=== PATIENT | female | born 1985 | race Caucasian/White ===

== ENCOUNTER 2016-11-29 05:40 | Inpatient (IN) | payer OTHER ==
--- NOTE | 2016-11-28 08:12 | P.HPOB ---
History of Present Illness H&P Date: 11/28/16 Chief Complaint: Repeat C/S and tubal ligation. This patient is a pleasant 31 yr female EDC 12/04/2016 EGA 39 weeks and 2 days who presents for repeat section and also requesting tubal ligation. has been uncomplicated. Review of Systems Constitutional: Denies chills, Denies fever Ears, nose, mouth and throat: Denies headache, Denies sore throat Cardiovascular: Denies chest pain, Denies shortness of breath Respiratory: Denies cough Gastrointestinal: Reports heartburn Genitourinary: Reports Menstruation: Reports amenorrhea Musculoskeletal: Denies myalgias Integumentary: Denies pruritus, Denies rash Neurological: Denies numbness, Denies weakness Psychiatric: Denies anxiety, Denies depression Past Medical History Past Medical History: No Reported History History of Any Multi-Drug Resistant Organisms: None Reported Past Surgical History: Section Past Anesthesia/Blood Transfusion Reactions: Postoperative Nausea & Vomiting ( PONV) Past Psychological History: No Psychological Hx Reported Smoking Status: Current every day smoker Past Alcohol Use History: None Reported Additional Past Alcohol Use History / Comment(s): has smoked 12 years currently 5 cig/day Past Drug Use History: None Reported - Past Family History Mother Family Medical History: No Reported History Medications and Allergies Home Medications Medication Instructions Recorded Confirmed Type #79/Iron Asp Gly/FA#1 1 each PO DAILY 11/22/16 11/26/16 History [Prenate Elite Tablet] Allergies Allergy/AdvReac Type Severity Reaction Status Date / Time No Known Allergies Allergy Verified 11/26/16 14:58 Exam - OBG Physical Exam Abdomen: bowel sounds normal, no diffuse tenderness, no bruit present, no guarding noted, no hepatomegaly, no splenomegaly, no mass Vulva: both: normal Vagina: normal moisture, no discharge Cervix: no lesion (Cervix in the office was closed.), no discharge Uterus: enlarged (Fundal height is 40cm) Results labs: A positive, Rubella Immune, CEA-JZT-IjuW negative, Glucola was normal. GBS negative. Ultrasounds have been normal. Assessment and Plan (1) Third trimester Narrative/Plan: This is a pleasant 31 yr female 39 and 2/7 wks gestation with previous C/S who requests repeat C/S and also desires a tubal ligation. Patient does understand that a tubal ligation is considered permanent, however there is a failure rate of ~20-. She also understands the risks of surgery: infection, bleeding, possible injury to bowel/bladder/vessels or other organs. All of the patients questions were answered and a written consent obtained. Plan is to proceed with a repeat section and bilateral partial salpingectomy. Status: Acute (2) Previous delivery affecting Status: Acute (3) Family planning Status: Acute
[2016-11-29] MEDS ORDERED: LACTATED RINGERS 1,000 ML IV SCH (05:59)
[2016-11-29] MEDS ORDERED: CITRIC ACID-SODIUM CITRATE 15 ML CUP PO ONE (05:59)
[2016-11-29] MEDS ORDERED: LACTATED RINGERS 1,000 ML IV ONE (05:59)
[2016-11-29 06:07] VITALS: BMI 31.9
[2016-11-29 07:05] LABS: Basophils % (A) 0 %; CH 30.5; CHCM 33.3; Eosinophils # (A) 0.1 k/uL (0-0.7); Eosinophils % (A) 1 %; HCT 36.1 % (34.0-46.0); HDW 2.27; Luc # (Auto) 0.46; Luc % (Auto) 3; Lymphocytes % (A) 22 %; MCH 30.7 pg (25.0-35.0); MCHC 33.3 g/dL (31.0-37.0); MCV 92.2 fL (80.0-100.0); Mean Platelet Volume 7.7; Monocytes # (A) 1.1 k/uL (0-1.0); Monocytes % (A) 8 %; Neutrophils # (A) 9.3 k/uL (1.3-7.7); Neutrophils % (A) 67 %; RBC 3.91 m/uL (3.80-5.40); RDW 13.6 % (11.5-15.5)
[2016-11-29] MEDS ORDERED: ceFAZolin 2 GM in SODIUM CHLORIDE 0.9% 100 ML IVPB ONE (07:15)
[2016-11-29] MEDS ORDERED: NALBUPHINE 10 MG/ML AMPUL ONE (07:43)
[2016-11-29] MEDS ORDERED: PHENYLEPHRINE-0.9% NACL SYG 1 MG/10 ML SYRINGE ONE (07:43)
[2016-11-29] MEDS ORDERED: KETOROLAC 30 MG/ML 1 ML VIAL ONE (07:43)
[2016-11-29] MEDS ORDERED: MORPHINE SULFATE (PF) 0.3 MG/0.3 ML SYR ONE (07:43)
[2016-11-29] MEDS ORDERED: ONDANSETRON 4 MG/2 ML VIAL ONE (07:43)
[2016-11-29] MEDS ORDERED: LACTATED RINGERS 1,000 ML BAG IV ONE (07:43)
[2016-11-29] MEDS ORDERED: OXYTOCIN 10 UNIT/ML 1 ML VIAL IM ONE (07:43)
--- NOTE | 2016-11-29 08:41 | P.OP ---
Date of Procedure: 11/29/16 Preoperative Diagnosis: #1: 39-2/7 weeks . #2: Previous section desires repeat. #3: Multi parity desires permanent sterilization. Postoperative Diagnosis: Same Procedure(s) Performed: #1: Repeat low transverse section. #2: Bilateral partial salpingectomy. Anesthesia: spinal Surgeon: Oscar Ortega Organic Lab Worker #1: Paola Clinton Estimated Blood Loss (ml): 500 Pathology: other (Placenta and bilateral fallopian tube segments.) Condition: stable Disposition: floor Indications for Procedure: Please see dictated H&P for intimate details of this patient's admission. In brief summary this is a pleasant 31-year-old 2 para 1 female 39-2/7 weeks gestation who is admitted to labor and delivery for elective repeat section and also requesting permanent sterilization. Patient does understand that a tubal ligation is considered permanent however there is a failure rate of approximately 20-25 per thousand procedures done. She also understands surgery itself has risks including risk of infection, bleeding, possible injury to bowel, bladder, vessels, and/or other organs. All the patient's questions are answered and a written consent is obtained. Operative Findings: This was a vigorous viable male Apgars were 9 and 10 delivery time was 0804 hrs. Description of Procedure: This patient has a Hall catheter placed to straight drain. She is sexually taken to the operating room where she is sat up and spinal anesthetic is administered without incident. With an adequate level of anesthesia, she has abdominal prep and drape. Scalpels and taken in the previous Pfannenstiel incision is excised. A second scalpel is taken down to the fascia. The fascial incision extended bilaterally using the Florence scissors. Fascia is then dissected sharply off the rectus muscles. Rectus muscles are and the peritoneum is identified and entered sharply. The peritoneal incision extended superiorly and inferiorly without difficulty. The bladder blade is placed. Bladder peritoneum was taken sharply off the lower uterine segment. Scalpels then taken a low transverse uterine incision is then made. Using a hemostat I into the uterine cavity bluntly, there is loss of a large amount of clear fluid. This incision is extended bluntly. 's head is then guided through the incision with fundal pressure we have delivery of the infant's head. Mouth and nares are bulb suctioned and there is no evidence of a nuchal cord. We then have delivery the rest this infant's body. This is a vigorous viable male infant Apgars are 9 and 10 delivery time was 0804 hrs. After delivery of the the umbilical cord is doubly clamped and cut and appears to be trivascular. The placenta is then manually extracted intact. The uterus is externalized. The uterine incisions demarcated with Du clamps. All debris is cleared the uterine cavity. Uterine incision is then closed using 0 Vicryl in 2 layers locking fashion. Excellent hemostasis is noted. Bladder peritoneum was then reapproximated using a 3-0 Vicryl. Again good hemostasis is noted I then turned my attention to the left fallopian tube. Approximately 4 cm from the cornual insertion a small window is made to the mesial salpinx with Bovie cautery. Using a 2-0 silk I doubly ligate a 2 cm segment of fallopian tube. This is then excised and handed off to pathology. Cauterization is done of the tubal ends. Then turned my attention of the right fallopian tube and using a similar technique a segment of the right fallopian tube is removed. Cauterization of the tubal ends is done as well. Both tubes were inspected and found to be hemostatic. Excess fluid is removed from the abdomen and pelvis. The uterus is placed back into the abdomen. Again the tubes inspected and found to be hemostatic. The parietal peritoneum was then identified and closed using 0 Vicryl running fashion. The rectus muscles reapproximated in 0 Vicryl interrupted fashion. Fascia is then closed using 0 PDS. Fascial incision is intact and hemostatic. Subcutaneous tissues and closed using a 3-0 Vicryl. Skin is and closed using timothy. All counts are correct 3. No complications. and mother are stable in their birthing suite.
[2016-11-29] MEDS ORDERED: ACETAMINOPHEN TAB 325 MG TAB PO PRN (08:53)
[2016-11-29] MEDS ORDERED: ONDANSETRON 4 MG/2 ML VIAL IVP PRN (08:53)
[2016-11-29] MEDS ORDERED: DIPH,PERTUS(ACELL)TETVAC-LF 0.5 ML VIAL IM ONE (08:53)
[2016-11-29] MEDS ORDERED: diphenhydrAMINE 50 MG/ML 1 ML VIAL IVP PRN (08:53)
[2016-11-29] MEDS ORDERED: SIMETHICONE 80 MG CHEWABLE PO PRN (08:53)
[2016-11-29] MEDS ORDERED: NALOXONE 0.4 MG/ML 1 ML VIAL IV PRN (08:53)
[2016-11-29] MEDS ORDERED: Acetaminophen-Codeine 300-30mg TAB PO PRN (08:53)
[2016-11-29] MEDS ORDERED: diphenhydrAMINE 25 MG CAP PO PRN (08:53)
[2016-11-29] MEDS ORDERED: ZOLPIDEM 5 MG TAB PO PRN (08:53)
[2016-11-29] MEDS ORDERED: LANOLIN CREAM 5 GM TUBE TOPICAL PRN (08:53)
[2016-11-29] MEDS ORDERED: OXYTOCIN 30 UNITS/500 ML NS 30 UNIT in SALINE 1 500ML.BAG IV SCH (08:53)
[2016-11-29] MEDS ORDERED: METOCLOPRAMIDE 5 MG/ML 2 ML VIAL IVP PRN (08:53)
[2016-11-29] MEDS: SENNOSIDES-DOCUSATE SODIUM 1 EACH TAB PO SCH ×2 (09:56→19:49)
[2016-11-29] MEDS: LACTATED RINGERS 1,000 ML IV SCH ×3 (12:57→21:28)
[2016-11-29] MEDS: KETOROLAC 30 MG/ML 1 ML VIAL IVP PRN ×2 (14:06→19:48)
[2016-11-30] MEDS: KETOROLAC 30 MG/ML 1 ML VIAL IVP PRN ×2 (01:41→08:54)
[2016-11-30] MEDS: LACTATED RINGERS 1,000 ML IV SCH (01:42)
--- NOTE | 2016-11-30 07:48 | P.PNOBGPC ---
Subjective - Subjective Patient reports: Reports appetite normal, Reports voiding normally, Reports pain well controlled, Reports ambulating normally : doing well Objective - Vital Signs Latest vital signs: Vital Signs Temp Pulse Pulse Resp BP Pulse Ox 11/30/16 05:00 98.2 F 68 16 100/54 11/29/16 23:48 98.3 F 73 16 93/54 11/29/16 20:00 98.1 F 69 16 116/69 11/29/16 16:30 98.3 F 56 L 16 100/59 99 11/29/16 12:00 98.3 F 60 18 126/60 98 11/29/16 10:30 96.9 F L 60 15 102/59 100 11/29/16 10:00 61 18 110/66 100 11/29/16 09:30 96.8 F L 56 L 17 104/62 99 11/29/16 09:15 53 L 18 105/60 99 11/29/16 09:00 55 L 16 104/57 99 11/29/16 08:45 76 15 92/51 98 11/29/16 08:30 96.5 F L 76 17 94/46 99 Intake and Output 11/29/16 11/30/16 11/30/16 22:59 06:59 14:59 Intake Total 240 Output Total 500 200 Balance -260 -200 Intake: IV 240 Invasive Line 1 240 Output: Urine 500 200 Uretheral (Hall) 200 Other: # Voids 1 - Exam Lungs: bilateral: normal Chest: Normal S1, Normal S2 Extremities: Present: normal Abdomen: Present: normal appearance, soft. Absent: distention, tenderness Incision: Present: normal, dry, intact Uterus: Present: normal, firm Assessment and Plan (1) Third trimester Narrative/Plan: Post operative day #1. Patient is resting without complaints. Vital signs are stable and she is afebrile. Uterus is firm nontender and her incision is intact and dry. Her CBC is pending. Patient's tolerating regular diet and urinating without difficulty. Plan is to continue routine postoperative care, check a CBC, encouraged patient to ambulate, and allow her to shower. Current Visit: Yes Status: Acute Code(s): Z33.1 - STATE, INCIDENTAL SNOMED Code(s): 56841582 (2) Previous delivery affecting Current Visit: Yes Status: Acute Code(s): O34.219 - MATERNAL CARE FOR UNSP TYPE SCAR FROM PREVIOUS DEL SNOMED Code(s): 421431868 (3) Family planning Current Visit: Yes Status: Acute Code(s): Z30.09 - ENCOUNTER FOR OTH GENERAL CNSL AND ADVICE ON CONTRACEPTION SNOMED Code(s): 00115152
[2016-11-30 08:06] LABS: Basophils % (A) 0 %; CH 30.9; CHCM 33.4; Eosinophils # (A) 0.2 k/uL (0-0.7); Eosinophils % (A) 1 %; HCT 30.7 % (34.0-46.0); HDW 2.29; Luc # (Auto) 0.42; Luc % (Auto) 3; Lymphocytes # (A) 2.1 k/uL (1.0-4.8); Lymphocytes % (A) 17 %; MCH 29.9 pg (25.0-35.0); MCHC 32.2 g/dL (31.0-37.0); MCV 92.9 fL (80.0-100.0); Mean Platelet Volume 8.6; Monocytes # (A) 0.9 k/uL (0-1.0); Monocytes % (A) 7 %; Neutrophils # (A) 8.8 k/uL (1.3-7.7); Neutrophils % (A) 71 %; RBC 3.31 m/uL (3.80-5.40); RDW 13.7 % (11.5-15.5); WBC 12.4 k/uL (3.8-10.6); WBC (Perox) 13.87
[2016-11-30 08:11] LABS: HGB 9.9 gm/dL (11.4-16.0)
[2016-11-30] MEDS: Acetaminophen-Codeine 300-30mg TAB PO PRN (14:53)
[2016-11-30] MEDS: SENNOSIDES-DOCUSATE SODIUM 1 EACH TAB PO SCH ×2 (14:54→20:13)
--- NOTE | 2016-11-30 18:45 | P.PN ---
Progress Note - Text Postoperative day 1 status post section under spinal anesthesia, and intrathecal morphine given for postoperative analgesia, patient doing well, there is no anesthesia related complications, further management as per her primary team
[2016-11-30] MEDS: IBUPROFEN 600 MG TAB PO PRN (18:47)
[2016-12-01] MEDS: Acetaminophen-Codeine 300-30mg TAB PO PRN ×2 (00:04→07:21)
[2016-12-01 00:16] VITALS: RESP 18
--- NOTE | 2016-12-01 07:22 | P.PNOBGPC ---
Subjective - Subjective Patient reports: Reports appetite normal, Reports voiding normally, Reports pain well controlled, Reports ambulating normally : doing well Objective - Vital Signs Latest vital signs: Vital Signs Temp Pulse Resp BP Pulse Ox 12/01/16 00:00 98 F 64 18 107/65 100 11/30/16 16:00 98 F 82 20 99/50 99 11/30/16 08:00 98.5 F 56 L 20 112/48 99 - Exam Lungs: bilateral: normal Chest: Normal S1, Normal S2 Extremities: Present: normal Abdomen: Present: normal appearance, soft. Absent: distention, tenderness Incision: Present: normal, dry, intact Uterus: Present: normal, firm - Labs Labs: Abnormal Lab Results - Last 24 Hours (Table) 11/30/16 Range/Units 07:28 WBC 12.4 H (3.8-10.6) k/uL RBC 3.31 L (3.80-5.40) m/uL Hgb 9.9 L D (11.4-16.0) gm/dL Hct 30.7 L (34.0-46.0) % Neutrophils # 8.8 H (1.3-7.7) k/uL Assessment and Plan (1) Third trimester Narrative/Plan: Postoperative day #2. Patient is resting without complaints and wishes to go home. Vital signs are stable and she is afebrile. Patient is tolerating regular diet, ambulating, urinating without difficulty. Her incision is intact and dry and healing well. Hemoglobin was 9.9. My impression this is a normal course and she is stable for discharge home follow up with me in 1 week. Current Visit: Yes Status: Acute Code(s): Z33.1 - STATE, INCIDENTAL SNOMED Code(s): 45899134 (2) Previous delivery affecting Current Visit: Yes Status: Acute Code(s): O34.219 - MATERNAL CARE FOR UNSP TYPE SCAR FROM PREVIOUS DEL SNOMED Code(s): 874265193 (3) Family planning Current Visit: Yes Status: Acute Code(s): Z30.09 - ENCOUNTER FOR OTH GENERAL CNSL AND ADVICE ON CONTRACEPTION SNOMED Code(s): 11638080
--- NOTE | 2016-12-01 07:28 | P.DS ---
Providers Date of admission: 11/29/16 05:40 Expected date of discharge: 12/01/16 Attending physician: Oscar Ortega Primary care physician: Shree Davison - Discharge Diagnosis(es) (1) Third trimester Current Visit: Yes Status: Acute (2) Previous delivery affecting Current Visit: Yes Status: Acute (3) Family planning Current Visit: Yes Status: Acute Hospital Course: Please see dictated H&P for intimate details of this patient's admission. Brief summary this is a pleasant 31-year-old 2 para 1 female 39-2/7 weeks gestation who is admitted to labor and delivery for elective repeat section and tubal ligation. Patient goes above-named surgeries and by postoperative 2 cell to be stable for discharge home follow up with me in 1 week. Procedures: Repeat low transverse section and bilateral partial salpingectomy. Patient Condition at Discharge: Good Plan - Discharge Summary New Discharge Prescriptions: Acetaminophen-Codeine 300-30mg [Tylenol w/codeine #3] 1 - 2 each PO Q4HR PRN # 40 tab PRN Reason: Mild Pain Ibuprofen [Motrin] 600 mg PO Q6HR PRN #40 tab PRN Reason: Mild Pain Or Fever >= 100.5 Discharge Medication List #79/Iron Asp Gly/FA#1 [Prenate Elite Tablet] 1 each PO DAILY 11/22/16 [ History] Acetaminophen-Codeine 300-30mg [Tylenol w/codeine #3] 1 - 2 each PO Q4HR PRN # 40 tab 12/01/16 [Rx] Ibuprofen [Motrin] 600 mg PO Q6HR PRN #40 tab 12/01/16 [Rx] Follow up Appointment(s)/Referral(s): Oscar Ortega MD [STAFF PHYSICIAN] - 12/09/16 1:30 pm (Please see me on January 09 is well at 9:30 AM for a check.) Patient Instructions/Handouts: (DC) Activity/Diet/Wound Care/Special Instructions: No heavy lifting or strenuous activity for 6 weeks. Please call if any fever, chills, excessive vaginal bleeding, and/or abdominal pain. Discharge Disposition: HOME SELF-CARE
[2016-12-01 08:20] VITALS: BP 108/73; PULSE 71; TEMP 98.2
[2016-12-01] MEDS: IBUPROFEN 600 MG TAB PO PRN (10:48)
[2016-12-01] MEDS: SENNOSIDES-DOCUSATE SODIUM 1 EACH TAB PO SCH (10:49)
== END 2016-12-01 11:30 | disposition home or self-care (01) | DRG 766 ==
LOC: 4FBP 05:40
PROVIDERS: ADMIT Obstetrics & Gynecology; ATTEND Obstetrics & Gynecology
PROC: 0UB70ZZ Excision of Bilateral Fallopian Tubes, Open Approach (ICD-10-PCS; 2016-11-29)
PROC: 10D00Z1 Extraction of Products of Conception, Low, Open Approach (ICD-10-PCS; principal; 2016-11-29 08:00)
DX: O34.211 Maternal care for low transverse scar from previous cesarean delivery (principal); F17.200 Nicotine dependence, unspecified, uncomplicated; Z37.0 Single live birth; O99.334 Smoking (tobacco) complicating childbirth; Z30.2 Encounter for sterilization; Z3A.39 39 weeks gestation of pregnancy
CPT/HCPCS: 85025; 86850; 86900; 86901; 88302; 88307; 90715